=== PATIENT | male | born 1985 | race Caucasian/White ===

== ENCOUNTER 2022-06-26 11:16 | Emergency (ER) | payer BC ==
[2022-06-26 11:29] VITALS: BP 118/85; PULSE 64
[2022-06-26] MEDS ORDERED: Sodium Chloride 0.9% 1,000 ML ONE (11:38)
[2022-06-26] MEDS ORDERED: Acetaminophen 500 MG Tab ONE (11:38)
[2022-06-26] MEDS ORDERED: Sodium Chloride 0.9% 1,000 ML IV ONE (11:45)
[2022-06-26] MEDS: Sodium Chloride 0.9% 10 ML Syringe FLUSH PRN ×2 (11:57→12:45)
[2022-06-26] MEDS ORDERED: Acetaminophen 500 MG Tab PO ONE (11:58)
[2022-06-26 12:42] LABS: ANION GAP 15.9 mmol/L (5-15)
== END 2022-06-26 14:30 | disposition home or self-care (01) ==
LOC: KA.ED 11:16
DX: U07.1 COVID-19 (principal); R53.81 Other malaise; R53.83 Other fatigue; Z28.310 Unvaccinated for COVID-19
CPT/HCPCS: 36415; 71045; 80053; 81001; 84484; 85025; 85379; 93005; 93010; 96360; 99284; 99284-25; A9270-GY; J3490; J7030; U0002